=== PATIENT | male | born 1955 ===

== ENCOUNTER 2021-03-10 22:18 | Emergency (ER) | payer OTHER, MEDICAID ==
[~2021-03-10] VITALS: Ht 180.3 cm; Wt 65.8 kg
[2021-03-10 23:54] VITALS: BP 160/87
== END 2021-03-11 00:56 | disposition left against medical advice (07) ==
LOC: ER 22:18
DX: N20.0 Calculus of kidney (principal); Z53.21 Procedure and treatment not carried out due to patient leaving prior to being seen by health care provider

== ENCOUNTER → 2023-07-02 14:54 | Emergency (ER) | payer MEDICARE, MEDICAID ==
[~2023-07-02] VITALS: Ht 177.8 cm; Wt 62.5 kg
[2023-07-02 15:16] VITALS: BP 157/89; PULSE 124; RESP 16; O2SAT 100
== END | disposition left against medical advice (07) ==
LOC: ER 14:54
DX: R53.1 Weakness (principal); Z53.21 Procedure and treatment not carried out due to patient leaving prior to being seen by health care provider